=== PATIENT | male | born 1995 | race Caucasian/White ===

== ENCOUNTER 2016-08-24 15:25 | Emergency (ER) | payer OTHER ==
[~2016-08-24] VITALS: Ht 182.9 cm; Wt 68.0 kg
[~2016-08-24 15:25] MED LIST: FISH120012 PO
[2016-08-24 15:26] VITALS: BP 137/70
[2016-08-24] MEDS ORDERED: IBUP200C PO (15:45)
[2016-08-24] MEDS ORDERED: ACET50TA PO (15:45)
[2016-08-24] MEDS ORDERED: AUGMENTIN 875 MG TAB PO ONE (16:30)
[2016-08-24] MEDS ORDERED: predniSONE 20 MG TAB PO ONE (16:30)
[2016-08-24] MEDS ORDERED: AUGM875T27 PO (16:31)
== END 2016-08-24 16:36 | disposition home or self-care (01) ==
LOC: M ED 16:24
DX: J02.9 Acute pharyngitis, unspecified (principal); R05 Cough